=== PATIENT | male | born 1980 | race Two or more races ===

== ENCOUNTER 2021-02-04 21:11 | Emergency (ER) | payer OTHER ==
[~2021-02-04] VITALS: Ht 175.3 cm; Wt 94.8 kg
[2021-02-05] MEDS ORDERED: chlordiazePOXIDE HCL 25 MG CAP PO ONE (00:45)
[2021-02-05 01:45] VITALS: BP 118/85
== END 2021-02-05 02:00 | disposition home or self-care (01) ==
LOC: ER 21:11
DX: F10.139 Alcohol abuse with withdrawal, unspecified (principal); I10 Essential (primary) hypertension; Y90.9 Presence of alcohol in blood, level not specified